=== PATIENT | female | born 1945 | race Caucasian/White ===

== ENCOUNTER 2020-12-08 14:37 | Emergency (ER) | payer MEDICARE, BC ==
[2020-12-08 14:43] VITALS: TEMP 98.1
[2020-12-08 15:20] LABS: Basophils % (A) 0 %; Eosinophils % (A) 0 %; HCT 40.8 % (34.0-46.0); Lymphocytes # (A) 1.1 k/uL (1.0-4.8); Lymphocytes % (A) 8 %; MCH 31.7 pg (25.0-35.0); MCHC 34.4 g/dL (31.0-37.0); MCV 92.2 fL (80.0-100.0); Mean Platelet Volume 7.7; Monocytes # (A) 0.5 k/uL (0-1.0); Monocytes % (A) 4 %; Neutrophils % (A) 87 %; Platelet Count 270 k/uL (150-450); RBC 4.42 m/uL (3.80-5.40); RDW 12.8 % (11.5-15.5); WBC 13.8 k/uL (3.8-10.6)
--- NOTE | 2020-12-08 15:24 | ED ---
General Adult HPI - General Chief complaint: Recheck/Abnormal Lab/Rx Stated complaint: Abn EKG Time Seen by Provider: 12/08/20 14:54 Source: patient Mode of arrival: ambulatory Limitations: no limitations - History of Present Illness Initial comments: Dictation was produced using [employer] dictation software. please excuse any grammatical, word or spelling errors. Chief Complaint: 75-year-old female presents emergency department for abnormal EKG History of Present Illness: Is a 75-year-old female she was sent here from [facility] urgent care for a checkup. She had symptoms of epigastric discomfort and she states she ate 2 large salads last night. She does not eat this much solid on a regular basis. Patient states that she will go this morning with the symptoms lasted for several minutes. She went to the urgent care where she saw a physician automobile mechanic assistant. She had an EKG performed which he was told was abnormal in that she should come to the emergency Department immediately. Patient states that initially this morning she had some discomfort to her epigastric area however her symptoms will down to her pelvic area. She complained of some mild nausea. She denies having pressure-like sensation in her chest that radiate down her arm or towards her jaw. No history of heart attacks. She has mild history of hypertension. No history of diabetes or high cholesterol. She has no cardiac history. She has no strong family history of cardiac disease. The ROS documented in this emergency department record has been reviewed and confirmed by me. Those systems with pertinent positive or negative responses have been documented in the HPI. All other systems are other negative and/or noncontributory. PHYSICAL EXAM: General Impression: Alert and oriented x3, not in acute distress HEENT: Normocephalic atraumatic, extra-ocular movements intact, pupils equal and reactive to light bilaterally, mucous membranes moist. Cardiovascular: Heart regular rate and rhythm Chest: Able to complete full sentences, no retractions, no tachypnea Abdomen: abdomen soft, non-tender, non-distended, no organomegaly Musculoskeletal: Pulses present and equal in all extremities, no peripheral edema Motor: no focal deficits noted Neurological: CN II-XII grossly intact, no focal motor or sensory deficits noted Skin: Intact with no visualized rashes Psych: Normal affect and mood ED course: 75-year-old female presents to the emergency department for abnormal EKG. Vital signs upon arrival are within acceptable limits. Patient's reevaluated at bedside she has very mild periumbilical discomfort. Her abdomen however is soft. She denies any symptoms of chest pain chest pressure. Her symptoms are very atypical for any acute coronary process. She has minimal risk factors. Prehospital EKG performed at [facility] does not show any signs of ischemia or infarction. We did repeat EKG here in emergency department that showed similar findings with no dynamic changes. No findings of active ischemia or infarction. She is well-appearing at bedside. There is no old EKG for comparison. Laboratory evaluation obtained. CBC, metabolic panel and troponins negative. Patient reevaluated at bedside at 3:55 PM found with stable medical condition. Symptoms are likely secondary to gas pain after eating too large salad yesterday. 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 Patient otherwise advised follow-up with primary care doctor. EKG interpretation: Ventricular rate 60, normal sinus rhythm,. 170, care is 84, QTC 435. No LA prolongation, no QTC prolongation. No old EKG for comparison. No ST elevations or infarction. There is an isolated T-wave inversion in lead 3.. Overall, this EKG is nonspecific - Related Data Allergies Allergy/AdvReac Type Severity Reaction Status Date / Time No Known Allergies Allergy Verified 12/08/20 14:43 Review of Systems ROS Statement: Those systems with pertinent positive or pertinent negative responses have been documented in the HPI. ROS Other: All systems not noted in ROS Statement are negative. Past Medical History Past Medical History: Hypertension, Thyroid Disorder History of Any Multi-Drug Resistant Organisms: None Reported Past Surgical History: Joint Replacement Additional Past Surgical History / Comment(s): sigifredo hips, sigifredo feet Past Psychological History: Anxiety Smoking Status: Former smoker Past Alcohol Use History: None Reported Past Drug Use History: None Reported General Exam Limitations: no limitations Course Vital Signs 12/08/20 14:39 Temperature 98.1 F Pulse Rate 78 Respiratory 18 Rate Blood Pressure 178/132 O2 Sat by Pulse 98 Oximetry Medical Decision Making - Lab Data Result diagrams: 12/08/20 15:10 12/08/20 15:10 Lab Results 12/08/20 12/08/20 12/08/20 Range/Units 15:10 15:10 15:10 WBC 13.8 H (3.8-10.6) k/uL RBC 4.42 (3.80-5.40) m/uL Hgb 14.0 (11.4-16.0) gm/dL Hct 40.8 (34.0-46.0) % MCV 92.2 (80.0-100.0) fL MCH 31.7 (25.0-35.0) pg MCHC 34.4 (31.0-37.0) g/dL RDW 12.8 (11.5-15.5) % Plt Count 270 (150-450) k/uL MPV 7.7 Neutrophils % 87 % Lymphocytes % 8 % Monocytes % 4 % Eosinophils % 0 % Basophils % 0 % Neutrophils # 12.0 H (1.3-7.7) k/uL Lymphocytes # 1.1 (1.0-4.8) k/uL Monocytes # 0.5 (0-1.0) k/uL Eosinophils # 0.0 (0-0.7) k/uL Basophils # 0.0 (0-0.2) k/uL Sodium 136 L (137-145) mmol/L Potassium 3.6 (3.5-5.1) mmol/L Chloride 102 (98-107) mmol/L Carbon Dioxide 24 (22-30) mmol/L Anion Gap 10 mmol/L BUN 8 (7-17) mg/dL Creatinine 0.66 (0.52-1.04) mg/dL Est GFR (CKD-EPI)AfAm >90 (>60 ml/min/1.73 sqM) Est GFR (CKD-EPI)NonAf 86 (>60 ml/min/1.73 sqM) Glucose 116 H (74-99) mg/dL Calcium 9.6 (8.4-10.2) mg/dL Troponin I <0.012 (0.000-0.034) ng/mL Lipase 84 (23-300) U/L Disposition Clinical Impression: Abdominal gas pain Disposition: HOME SELF-CARE Condition: Fair Instructions (If sedation given, give patient instructions): Abdominal Pain (ED) Additional Instructions: miralax, or gas-x Is patient prescribed a controlled substance at d/c from ED?: No Referrals: Nonstaff,Physician [Primary Care Provider] - 1-2 days
[2020-12-08 15:30] LABS: African American GFR (CKD) >90 (>60 ml/min/1.73 sqM); Anion Gap 10 mmol/L; Blood Urea Nitrogen 8 mg/dL (7-17); Calcium 9.6 mg/dL (8.4-10.2); Carbon Dioxide 24 mmol/L (22-30); Chloride 102 mmol/L (98-107); Glucose 116 mg/dL (74-99); Lipase 84 U/L (23-300); Non-African American GFR(CKD) 86 (>60 ml/min/1.73 sqM); Potassium 3.6 mmol/L (3.5-5.1); Sodium 136 mmol/L (137-145)
[2020-12-08 16:05] VITALS: BP 154/89; PULSE 73; RESP 20
== END 2020-12-08 16:05 | disposition home or self-care (01) ==
LOC: EC 14:37
DX: R14.1 Gas pain (principal); R94.31 Abnormal electrocardiogram [ECG] [EKG]; R11.0 Nausea; I10 Essential (primary) hypertension; F41.9 Anxiety disorder, unspecified; Z87.891 Personal history of nicotine dependence
CPT/HCPCS: 36415; 80048; 83690; 84484; 85025; 93005; 99285